=== PATIENT | male | born 1985 | race Caucasian/White ===

== ENCOUNTER 2016-06-12 09:10 | Emergency (ER) | payer OTHER, SELFPAY ==
--- NOTE | 2016-06-17 09:52 | ER ---
ADMIT: 06/12/2016 RM/LOC: ER [facility] MR#: [id number] 2620 [facility] [address] [place], [place] [address] GURU MILLARD [address] [facility] 24 [place] [id number] Emergency Room Report SEX: M AGE: 30 : 1985 DATE: 06/12/2016 ADDENDUM: CHIEF COMPLAINT: Foot numbness and tingling and weakness. HISTORY OF PRESENT ILLNESS: This is a 30-year-old, who has a history of diabetes. His right foot has been weak and numb and tingly since he woke up this morning. COURSE IN THE EMERGENCY ROOM: I did a CT of the head and L-spine, both were negative for any acute disease. CBC was normal. Chemistries normal except for glucose elevated at 281. Urine is normal except for 1000 glucose and 2+ ketones. He did receive a liter of fluids here and discharging him home, told to continue his diabetes medications, encouraged him to check his blood sugars more often, encouraged him that he needs to follow up with [facility] for further evaluation of this the foot weakness and paresthesia. FINAL CLINICAL IMPRESSION: 1. Diabetes with hyperglycemia. 2. Right foot weakness and paresthesia. DISPOSITION: Stable at discharge. Will follow up with [facility] within the next week. JOHN Melo / Donovan Ngo MD / modl JOB #: [id number] CC: Donovan Ngo MD, Attending Physician
[2016-06-30] MEDS ORDERED: BACTRIM DS DPS1 TAB PO (10:55)
[2016-06-30] MEDS ORDERED: TYLENOL DPS325 MG PO (10:56)
[2016-06-30] MEDS ORDERED: LEVEMIR100 UNIT/1 SQ (10:56)
== END 2016-06-12 14:18 | disposition home or self-care (01) ==
LOC: ER 09:10
DX: E11.65 Type 2 diabetes mellitus with hyperglycemia (principal); R20.2 Paresthesia of skin; I10 Essential (primary) hypertension; F17.210 Nicotine dependence, cigarettes, uncomplicated; Z79.4 Long term (current) use of insulin; Z79.84 Long term (current) use of oral hypoglycemic drugs

== ENCOUNTER 2016-06-17 19:26 | Emergency (ER) | payer OTHER, SELFPAY ==
--- NOTE | 2016-06-18 13:23 | ER ---
ADMIT: 06/17/2016 RM/LOC: ER [facility] MR#: [id number] 2620 [facility] [address] [place], [place] [address] GURU MILLARD [address] [facility] 24 [place] [address] Emergency Room Report SEX: M AGE: 30 : 1985 DATE: 06/17/2016 HISTORY OF PRESENT ILLNESS: The patient is a 30-year-old male, goes to [facility], sees Dr. Etelvina Stanton. He is a diabetic and comes in with testicular pain right-sided for about 24 hours. He said he has had a boil in his right testicle. He has had similar symptoms before when he had pimples in the buttocks area. He is quite obese and he stated that he has lost 80 pounds, so he has long ways to go, but apparently he is doing well. His diabetes is not well controlled. He says his diabetes are usually 300 and up. He takes Toujeo insulin. PHYSICAL EXAMINATION: VITAL SIGNS: Blood pressure 159/83, heart rate is 94, respirations 20, temp is 100.4, O2 sats 96%. GENERAL: He is mildly anxious. ABDOMEN AND GENITOURINARY: No abdominal tenderness; however, he does have right testicular tenderness and a nonmobile mass in the right testicle. I do not see any dimple or any signs of abscess. NECK: Supple. RESPIRATIONS: No distress. CARDIOVASCULAR: Regular in rate and rhythm. EXTREMITIES: Well perfused. LABORATORY DATA: White count is elevated 13.6. Ultrasound of the right testicle rules out a torsion, but is positive for right epididymitis. CLINICAL IMPRESSION: 1. Right epididymitis. 2. Hyperglycemia. Almost a noncompliant diabetic. His hemoglobin A1c has been elevated as well. I consulted with Dr. Mcintosh for his treatment. We are going to go ahead and do Rocephin 1 g and then sent him IM and we will send him home with doxycycline. Follow up with Etelvina Stanton [facility] or Dr. Smith, Urology. He is also given [place], and while in the emergency room, we will go ahead and give him a shot of Rocephin. JOHN Pena / Hamitlon Mcintosh MD / faiza JOB #: [id number] CC: Hamilton Mcintosh MD, Attending Physician Etelvina Stanton, Family Physician
[2016-06-30] MEDS ORDERED: BACTRIM DS DPS1 TAB PO (10:55)
[2016-06-30] MEDS ORDERED: TYLENOL DPS325 MG PO (10:56)
[2016-06-30] MEDS ORDERED: LEVEMIR100 UNIT/1 SQ (10:56)
== END 2016-06-17 22:25 | disposition home or self-care (01) ==
LOC: ER 19:26
DX: N45.1 Epididymitis (principal); E11.65 Type 2 diabetes mellitus with hyperglycemia; Z79.4 Long term (current) use of insulin

== ENCOUNTER 2016-06-19 12:45 | Inpatient (IN) | payer OTHER ==
[~2016-06-19] VITALS: Ht 167.6 cm; Wt 121.0 kg
--- NOTE | 2016-06-21 09:02 | CO ---
ADMIT: 06/19/2016 RM/LOC: 522 [facility] MR#: [id number] 2620 [facility] [address] [place], [place] [address] GURU MILLARD [address] [facility] 24 [place] [address] Consultation SEX: M AGE: 30 : 1985 DATE OF CONSULTATION: 06/19/2016 ATTENDING PHYSICIAN: Radha Negron CONSULTING PHYSICIAN: Navid Smith MD PROBLEM: Scrotal swelling. HISTORY OF PRESENT ILLNESS: This 30-year-old gentleman approximately two days ago developed some pain in the right testicular area. He was seen by his family physician and placed on doxycycline antibiotic therapy. His pain worsened as well as the swelling and he presented to the emergency room today for further evaluation. He had scrotal ultrasound two days ago, which was repeated today reveals epididymitis without evidence of air within the soft- tissue. He is voiding without urgency, frequency, hesitancy, strain to void or feeling of incomplete emptying. There has been no dysuria or gross hematuria. He has not had any trauma to the genitourinary region. He denies previous epididymitis, orchitis, or prostatitis. He is a diabetic, which is poorly controlled, at this time on oral medication for this. PAST MEDICAL HISTORY: OPERATIONS: None. MEDICATIONS: 1. Metformin 1000 mg twice a day. 2. Lisinopril/hydrochlorothiazide 20/25 mg. 3. Toujeo 30 units every day. ALLERGIES: NONE. REVIEW OF SYSTEMS: He denies any cardiac or pulmonary disease. Other than his diabetes mellitus, he has been in good health. FAMILY HISTORY: Negative for urologic problems. SOCIAL HISTORY: He does not smoke. PHYSICAL EXAMINATION: GENERAL: This is a healthy appearing 30-year-old, in no acute distress. HEENT: Unremarkable. NECK: Supple without adenopathy. ABDOMEN: Soft, obese, nontender, without guarding or rigidity. No masses were noted. GENITOURINARY: The penis was uncircumcised. The scrotum is slightly erythematous with tenderness along the right epididymis in the region of the globus major. The testicle itself appears to be normal. The left testicle was nontender to palpation as well as the epididymis and cord structures. RECTAL: Deferred. ADMIT: 06/19/2016 RM/LOC: 522 [facility] MR#: [id number] [address] [place] [id number] [place], [place] [address] COLÓNDEE OHMONTOYA, GURU [address] [address] Consultation SEX: M AGE: 30 : 1985 EXTREMITIES: Full range of motion without deformity. NEUROLOGICAL: He is grossly intact. ASSESSMENT: Right epididymitis. PLAN: I would continue present antibiotic therapy using the Rocephin and Cipro. I would also ask that they obtain a jockstrap for scrotal elevation. Local heat will be applied to the scrotal region three times a day for a period of 30 minutes each time. Thank you for allowing us to assist in the care of your patient. We will follow along with you. Navid Smith MD/ faiza JOB #: [id number] CC: Radha Negron, Attending Physician Radha Negron, Family Physician Radha Negron MD
[2016-06-22] MEDS ORDERED: NORCO 5-325 TA1 EACH PO (15:44)
[2016-06-22] MEDS ORDERED: ZESTORETIC 20/21 TAB PO (15:44)
[2016-06-22] MEDS ORDERED: GLUCOPHAGE-DPS500 MG PO (15:44)
[2016-06-22] MEDS ORDERED: TOUJEO SOL300 UNIT/1 SQ (15:44)
[2016-06-22] MEDS ORDERED: MOTRIN-DPS800 MG PO (15:44)
[2016-06-22] MEDS ORDERED: OMNICEF DPS300 MG PO (15:45)
[2016-06-22] MEDS ORDERED: CIPRO DPS500 MG PO (15:45)
--- NOTE | 2016-06-28 06:57 | ER ---
ADMIT: 06/19/2016 RM/LOC: 522 [facility] MR#: [id number] 2620 [facility] [address] [place], [place] [address] GURU MILLARD [address] [facility] 24 [place] [address] Emergency Room Report SEX: M AGE: 30 : 1985 DATE: 06/19/2016 ADDENDUM: A 30-year-old male, who was seen a couple days ago for epididymitis, is having worsening symptoms in the past 2 days despite being on oral antibiotics. He admits that he has fairly poorly controlled diabetes. He went over to follow up at [facility] today and they were uncomfortable taking care of him as he was having increasing pain, swelling, and having fevers. He was sent to our facility for further workup. I did a sepsis routine on the patient in the Emergency Department. His white count is elevated to 14.1, his CRP is 19.6, lactic acid is 1.2. His electrolytes were unremarkable. His glucose is 318. Hemoglobin A1c was elevated to 12. Urinalysis showed 2+ protein, increased specific gravity of 1.043, and 4 urobilinogen. Ultrasound of his testicle and groin were done which reveals persistent epididymitis with some swelling, but he has normal flow to the testicle. There is no abscess or gas seen. There is increasing edema in the patient's groin. The patient looks to be not doing well on his outpatient antibiotic therapy and has quite poorly controlled diabetes which is complicating his infection. Plan at this time is to bring the patient in for IV antibiotics and I spoke to Dr. Negron as he is a city-call patient. She graciously agrees to admit the patient and he did receive his first dose of antibiotics in the Emergency Department. DIAGNOSES: 1. Epididymitis. 2. Groin cellulitis. 3. Poorly controlled insulin-dependent diabetes. Leonel Sotomayor MD/ modl JOB #: [id number] CC: Radha Negron MD, Attending Physician Radha Negron MD, Family Physician
[2016-06-30] MEDS ORDERED: BACTRIM DS DPS1 TAB PO (10:55)
[2016-06-30] MEDS ORDERED: TYLENOL DPS325 MG PO (10:56)
[2016-06-30] MEDS ORDERED: LEVEMIR100 UNIT/1 SQ (10:56)
--- NOTE | 2016-07-03 08:26 | HP ---
ADMIT: 06/19/2016 RM/LOC: 522 [facility] MR#: [id number] 2620 [facility] [address] [place], [place] [id number] GURU MILLARD [address] [facility] [address] [place] [address] History and Physical SEX: M AGE: 30 : 1985 DATE OF SERVICE: CHIEF COMPLAINT: Testicular pain and fever. HISTORY OF PRESENT ILLNESS: This is a 30-year-old gentleman who presented to the emergency room today complaining of fever and increasing testicular pain. He was actually in the emergency room on June 17 with a complaint of testicular pain and was diagnosed with epididymitis. At that visit, he was given IM Rocephin and a prescription for doxycycline 100 mg b.i.d. He went to [facility] today because he was having more pain and they referred him to come back to the hospital. This gentleman has type 2 diabetes, uncontrolled, with an A1c of 12.6. He is obese and has been unable to get around very well the last 48 hours because of the pain. Because of his high fever, failed outpatient treatment, and his diabetes, he is admitted for IV antibiotic therapy. I do note that on June 17, he had ultrasound revealing "finding suggesting acute right-sided epididymitis." No discrete abscess identified. There was also normal blood flow to both testes and no mass identified. Ultrasound was repeated today in the emergency room and was read as similar findings with no obvious abscess. PAST MEDICAL HISTORY: Significant for hypertension diagnosed several years ago. Also, type 2 diabetes diagnosed in about 2014. He has nonobstructive coronary artery disease, diagnosed by heart catheterization in 2008 in [place], [place]. He also has past records stating steatohepatitis. He is obese. SOCIAL HISTORY: He admits to smoking and says he will drink up to 8-12 beers on a weekend. He is single but his significant other is with him. 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 FAMILY HISTORY: Significant for diabetes in his mother and coronary artery disease with heart attacks in his maternal grandmother. Otherwise, history is noncontributory. MEDICATIONS: 1. Toujeo 30 units daily. 2. Doxycycline 100 mg twice daily starting on 06/17/2016. 3. He is supposed to take metformin and lisinopril but said he has not taken those for 2-3 months. 4. He is on lisinopril/hydrochlorothiazide 20/25 mg daily and metformin 1000 mg b.i.d., but again has not taken those for at least 2 months. REVIEW OF SYSTEMS: GENERAL: Positive for fevers and chills starting yesterday. ENT: Denies complaints. CARDIOPULMONARY: Denies chest pain. No shortness of breath. ADMIT: 06/19/2016 RM/LOC: 522 [facility] MR#: [id number] [address] [place] [id number] [address] History and Physical SEX: M AGE: 30 : 1985 GASTROINTESTINAL: Denies any nausea or vomiting. Denies diarrhea or constipation. GENITOURINARY: He said he is able to urinate. He has pain in the scrotum and testicle. MUSCULOSKELETAL: He did complain that he had some pain a week ago and is actually in the emergency room on June 12 and underwent ultrasound of the right leg which showed no DVT. NEURO/PSYCH: Benign. ENDOCRINE: Positive for diabetes. PHYSICAL EXAMINATION: VITAL SIGNS: Temperature was up to 104 here on the floor. ENT: Benign. He looks hydrated. He has no scleral icterus. He is alert and oriented. NECK: Thick. No obvious adenopathy in the neck or supraclavicular areas. HEART: Regular. LUNGS: Sound fairly clear. ABDOMEN: His belly is obese. It is difficult to feel for hepatosplenomegaly. He has no upper quadrant pain. He really does not have suprapubic pain but he does have tenderness in the groin on the right side and also with some redness and tenderness extending up into the pannus of his belly on the right side. GENITOURINARY: The scrotum is swollen and right testicle is difficult to palpate secondary to pain. There are no open wounds on the skin. EXTREMITIES: Lower extremities are obese, not really any pitting edema. LABORATORY AND X-RAY DATA: His ultrasound again showed no abscess and was consistent with the epididymitis. Sodium 134, potassium 3.9. His BUN is 11 with a creatinine of 0.8. Glucose was 318 on admission. Phosphorus was 2.4, but otherwise rest of the electrolytes are all normal and liver enzymes are normal. CRP is elevated at 19.6. Coagulation factors are normal. White count is 14.1, hemoglobin 14.7, platelet count 204. Monocytes are a little bit elevated at 1.5 and neutrophils are elevated at 10.9. Sedimentation rate is 52. A1c is 12.6. His urinalysis showed a high specific gravity, greater than a 1000 glucose, 2+ protein, 4+ urine ketones. Bilirubin was positive but less than 1 mg/dL. Nitrite negative. Leukocytes negative, and on the microscopic exam, he had 3 wbc's and less than 1 rbc per high-power field. ASSESSMENT: 1. Acute epididymitis failing outpatient care. 2. Diabetes type 2, uncontrolled. 3. Obesity. ADMIT: 06/19/2016 RM/LOC: 522 [facility] MR#: [id number] 5400 [facility] [address] [place] [id number] GURU MILLARD [facility] [address] [address] History and Physical SEX: M AGE: 30 : 1985 4. Hypertension. 5. Prior documented history of nonobstructive coronary artery disease. PLAN: Admit to the hospital. Start him on IV antibiotics. We will use IV Cipro and Rocephin. I will continue to keep him hydrated, monitor his blood sugars, and use sliding scale insulin. We will continue his Toujeo and restart his lisinopril with hydrochlorothiazide as well as his metformin. I will consult Urology and Dr. Smith is aware. I am also going to add GC, chlamydia, HIV testing to his labs. VTE prophylaxis will be with Lovenox. We will also follow his white count and CRP. Radha Negron MD/ faiza JOB #: [id number] CC: Radha Negron, Attending Physician Radha Negron, Family Physician
--- NOTE | 2016-07-16 08:17 | DS ---
ADMIT: 06/19/2016 RM/LOC: 512 [facility] MR#: [id number] 2620 [facility] [address] [place], [place] [address] GURU MILLARD [address] [facility] [address] [place] [address] General Discharge Summary SEX: M AGE: 30 : 1985 ADMISSION DATE: 06/19/2016 DISCHARGE DATE: 06/22/2016 FINAL DIAGNOSES: 1. Acute epididymitis with failed outpatient treatment and cellulitis. 2. Diabetes type 2, uncontrolled. 3. Morbid obesity. 4. Chronic hypertension. HOSPITAL COURSE: This gentleman was admitted with pain in the scrotal area and had epididymitis. He was taking doxycycline as an outpatient but started spiking fevers. He was admitted, started on IV antibiotics and Urology was consulted. Initially, white count was 14.1 and went up to a maximum of 15.5. The rest of his CBC was normal. Initial chemistries showed elevated glucose but otherwise normal. Procalcitonin and lactic acid were normal. He did have an elevated CRP at 19.6 on admission. His hemoglobin A1c is markedly elevated at 12.6. After starting IV antibiotic and IV fluid and using insulin with sliding scale, he had improvement in his temperatures and started to feel better. On 06/20, he met with wholesaler. On 06/21, temperature curve was improved but he still had a temp up to 101, and so we continued the antibiotics. Urology planned outpatient followup. By 06/22, he was afebrile, able to get up and move around without difficulty. He was dismissed home on Cipro and Omnicef orally. He will continue Cipro for 2 more weeks and the Omnicef for 1 more week. He also needs to continue metformin 1000 mg b.i.d., lisinopril/hydrochlorothiazide 20/25 mg daily, and Toujeo insulin 40 units daily. He already had some Lortab available at home and he can continue those if necessary for pain. Other significant laboratory included HIV test which was negative. Chlamydia and gonorrhea infections were not detected and blood cultures were negative for the full 5 days. He will follow up with Urology within a week but return if he has increasing pain or recurrent fever. Radha Negron MD/ faiza JOB #: [id number] CC: Radha Negron MD, Attending Physician Radha Negron MD, Family Physician
== END 2016-06-22 09:52 | disposition home or self-care (01) | DRG 728 ==
LOC: ER 12:45 → 5MS 14:43
PROVIDERS: ADMIT Family Medicine
DX: N45.1 Epididymitis (principal); E11.65 Type 2 diabetes mellitus with hyperglycemia; I10 Essential (primary) hypertension; L03.314 Cellulitis of groin; Z68.41 Body mass index [BMI] 40.0-44.9, adult; E66.9 Obesity, unspecified; F17.200 Nicotine dependence, unspecified, uncomplicated; Z79.4 Long term (current) use of insulin

== ENCOUNTER 2016-06-24 00:02 | Inpatient (IN) | payer OTHER ==
[~2016-06-24] VITALS: Ht 165.1 cm; Wt 120.2 kg
--- NOTE | ~2016-06-24 | WND ---
ADMIT: 06/24/2016 RM/LOC: 409 [facility] MR#: [id number] [address] [facility] [address] [place], [place] [address] ROMEO MILLARD Y [address] [facility] 24 [place] [address] W[facility] Care Clinic SEX: M AGE: 30 : 1985 DATE OF VISIT: 06/26/2016 CHIEF COMPLAINT: Right inguinal abscess. HISTORY OF PRESENT ILLNESS: Romeo is a 30-year-old male, who was recently admitted for a hospital stay for testicular pain and fever that turned out to be acute epididymitis with failed outpatient care; type 2 diabetes mellitus, uncontrolled; and obesity. His hospitalization was from June 19 to June 22. He reports that he went home for a day or 2 after receiving IV antibiotics in the hospital and stated that he had felt pretty good for a day; however, then he started to have blood and pus drained from that right groin area. He was readmitted where he underwent incision and drainage on 06/25/2016, and is currently on IV antibiotics to include vancomycin and Zosyn. ALLERGIES: No known drug allergies. CURRENT MEDICATIONS: 1. Glucophage 500 mg p.o. twice daily. 2. HydroDIURIL 25 mg p.o. daily. 3. Levaquin 750 mg daily. 4. Zestril 20 mg daily. 5. Levemir 30 units daily. 6. NovoLog. He is on a moderate dose sliding scale before meals and at bedtime. 7. Tylenol as needed for pain. 8. Dilaudid 1 mg IV every 2 hours p.r.n. for pain. 9. He is also getting vancomycin 1.75 g every 8 hours. 10.Zosyn 3.375 mg every 8 hours. PAST MEDICAL HISTORY: Type 2 diabetes mellitus, poorly controlled; obesity; epididymitis; hypertension. SOCIAL HISTORY: He denies any illicit drug use. He drinks socially and smokes daily. He is . FAMILY HISTORY: Significant for diabetes, coronary artery disease. REVIEW OF SYSTEMS: He does report pain to the groin area. He states this was 9/10 prior to the incision and drainage, but a 2 to 3/10 today. He denies any fever or chills currently. PHYSICAL EXAMINATION: VITAL SIGNS: Focused examination reveals vital signs of temperature 97.6 degrees Fahrenheit, respirations 16, pulse 59, blood pressure 115/49, pulse ox is 98% on room air. Romeo has a small open area in the right groin that is packed with 1 inch ADMIT: 06/24/2016 RM/LOC: 409 [facility] MR#: [id number] [address] [place] [phone] ROMEO MILLARD Y [address] [place] [address] Wound Care Clinic SEX: M AGE: 30 : 1985 gauze ribbon that appears saturated with serosanguineous exudate. He does have some periwound induration and erythema. ASSESSMENT: 1. Acute epididymitis. 2. Abscess in right inguinal area. 3. Obesity. 4. Poorly controlled type 2 diabetes mellitus. PLAN: I agree with the current treatment to pack the open area in the right groin with ribbon gauze and apply an ABD, which is secured with a jockstrap. They can change this. Malini Vargas APRN/ faiza JOB #: [id number] CC: Radha Negron, Attending Physician Radha Negron, Family Physician
[~2016-06-24 00:02] MED LIST: CIPRO DPS500 MG PO; GLUCOPHAGE-DPS500 MG PO; MOTRIN-DPS800 MG PO; NORCO 5-325 TA1 EACH PO; OMNICEF DPS300 MG PO; TOUJEO SOL300 UNIT/1 SQ; ZESTORETIC 20/21 TAB PO
--- NOTE | 2016-06-24 05:48 | ER ---
ADMIT: 06/24/2016 RM/LOC: ER [facility] MR#: [id number] 2620 [facility] [address] [place], [place] [address] GURU MILLARD Y [address] [facility] 24 [place] [address] Emergency Room Report SEX: M AGE: 30 : 1985 DATE: 06/24/2016 CHIEF COMPLAINT: Right scrotal mass. HISTORY OF PRESENT ILLNESS: The patient is a 30-year-old male with right scrotal cellulitis and epididymitis, recent hospitalization June 19 through . Two ultrasounds failed to confirm abscess. Presents tonight with increased pain, swelling, and now drainage; is compliant with his antibiotics of Cipro and cefdinir, taking hydrocodone two every 4 to 6 hours. PAST MEDICAL HISTORY: ILLNESSES: Type 2 diabetes with oral and sliding scale insulin, hypertension, epididymitis, morbid obesity. OPERATIONS: None ALLERGIES: NONE. MEDICATIONS: Please see nurse's MAR. SOCIAL HISTORY: Smokes one half pack per day. . No illicit drugs. Occasional alcoholic beverage. REVIEW OF SYSTEMS: A 12-point review of systems negative for all other systems, illnesses, or operations except as outlined above. PHYSICAL EXAMINATION: VITAL SIGNS: Temp 99.1, pulse 100, respirations 18, BP 138/76, SaO2 of 96% on room air. GENERAL: Morbidly obese, toxic-appearing male without jaundice or icterus. HEENT: Normocephalic. No evidence of epistaxis, rhinorrhea, or otorrhea. NECK: Supple without lymphadenopathy or thyromegaly. CHEST: Clear. Breath sounds equal. HEART: Tachycardic, regular without murmur, gallop, trace ankle edema noted. ABDOMEN: Morbidly obese, with panniculitis. Acutely tender right hemiscrotum. Cannot rule out hernia due to obesity, foul-smelling drainage noted right hemiscrotum. EXTREMITIES: No evidence of cellulitis or Homans sign. MEDICAL DECISION MAKING: The patient's screen is positive for sepsis. CT abdomen and pelvis and hemiscrotum shows likely abscess in right hemiscrotum, otherwise unremarkable. WBC 16.2, platelets 290, sodium 129, glucose 318, magnesium 1.7, CRP 18.1, lactic 1.4, troponin 0.015, procalcitonin 0.58. UA; 1+ ketone, greater than 1000 glucose. The patient was given IV fluid bolus 30 mg/kg after transient hypotension with antibiotics of vancomycin and Zosyn. Also, given Toradol and Dilaudid for pain with improvement. Discussed findings with Dr. Haines and Dr. Luke, who agreed and gave orders to nursing staff. ADMIT: 06/24/2016 RM/LOC: [facility] MR#: [id number] [address] [place] [phone] [facility] [place] [address] Emergency Room Report SEX: M AGE: 30 : 1985 DIAGNOSES: 1. Right hemiscrotal abscess. 2. Poorly-controlled diabetes. 3. Morbid obesity. RECOMMENDATION: Admit inpatient telemetry for Dr. Negron. ADMISSION/DISCHARGE CONDITION: Stable. Omar Colorado MD/ levyl JOB #: [id number] CC: Omar Colorado MD, Attending Physician Etelvina Stanton, REIMBURSEMENT SPEC-INDUSTRIAL ENGINEERING MANAGER, Family Physician Radha Negron MD
[2016-06-30] MEDS ORDERED: BACTRIM DS DPS1 TAB PO (10:55)
[2016-06-30] MEDS ORDERED: LEVEMIR100 UNIT/1 SQ (10:56)
[2016-06-30] MEDS ORDERED: TYLENOL DPS325 MG PO (10:56)
--- NOTE | 2016-07-03 08:26 | HP ---
ADMIT: 06/24/2016 RM/LOC: 409 [facility] MR#: [id number] 2620 [facility] [address] [place], [place] [address] GURU MILLARD [address] [facility] [address] [place] [address] History and Physical SEX: M AGE: 30 : 1985 DATE OF SERVICE: CHIEF COMPLAINT: Right scrotal mass bleeding and pain. HISTORY OF PRESENT ILLNESS: The patient is a 30-year-old male with right scrotal cellulitis and epididymitis, most recently hospitalized on june 19 through June 22. During that time, he had a workup, and was treated with antibiotics. He presented early this morning with increased pain, swelling, and now has drainage. The patient states he has been compliant with the Cipro and cefdinir. He is taking hydrocodone as well for pain control. The patient states that he has felt fairly well after he was discharged on Thursday and thought he was doing better, however, on Thursday evening, he went to put a hot pack on the area as he was told to do and suddenly noticed there is a lot of blood draining out as well as other pus. He says it is malodorous as well. PAST MEDICAL HISTORY: Type 2 diabetes with both oral and insulin, hypertension, epididymitis, and then morbid obesity. OPERATIONS: None. ALLERGIES: NONE. SOCIAL HISTORY: He smokes a day, drinks alcohol on occasion. He is . Denies any illicit drugs. FAMILY HISTORY: Significant for diabetes, coronary artery disease. Otherwise, noncontributory. MEDICATIONS: Include: 1. Toujeo 40 units. 2. Metformin 1000 mg b.i.d. 3. Lisinopril HCTZ 20/25 daily. 4. Hydrocodone 5/325 one to two tabs every 4-6 hours as needed. 5. Motrin every 8 hours as needed. 6. Omnicef 300 mg b.i.d. for 7 days. 7. Cipro 500 mg b.i.d. for 15 days. REVIEW OF SYSTEMS: GENERAL: The patient denies any fevers and chills. HEENT: Denies any complains. CARDIOPULMONARY: No chest pain. No shortness of breath. GI: Denies nausea or vomiting. He has had some diarrhea since being on antibiotics. : Pain in the scrotum and testicle as well as bleeding from the right scrotum. ENDOCRINE: Positive for diabetes. MUSCULOSKELETAL: No erythema or joint swelling. PHYSICAL EXAMINATION: VITAL SIGNS: Most recent vital signs show temp of 97.1, pulse is 75, respirations 16, blood pressure 124/69, and O2 saturation ADMIT: 06/24/2016 RM/LOC: 409 [facility] MR#: [id number] [address] [place] [phone] [address] [place] [address] [place] [address] History and Physical SEX: M AGE: 30 : 1985 of 97%. GENERAL: No acute distress. Alert and oriented x3. He is morbidly obese. HEENT: Normocephalic and atraumatic. Moist mucous membranes. Extraocular muscles are intact. Pupils are equal, round, and reactive. LUNGS: Clear to auscultation bilaterally. Normal respiratory effort. No wheezing or rhonchi appreciated. HEART: Regular rate and rhythm. No murmur. ABDOMEN: Soft and nontender. Positive bowel sounds. Morbidly obese. : Right scrotum has area of drainage with packing with moderate amount of blood. There is also some malodor to the area as well as swollen. EMERGENCY ROOM COURSE: Workup in the ER today showed UA that had greater than 1000 glucose and positive ketones but there are no signs of UTI. Blood cultures were drawn. CBC, white blood cell count was 16.2, hemoglobin was stable at 15, platelets were 290. PT/INR 10.9, 1.05. CMP; sodium was low at 129, however, glucose was elevated at 318, potassium was normal at 3.9, creatinine was normal at 0.9, Mag was slightly low at 1.7. Cardiac enzymes were negative. CRP was 18.10. Lactic acid was normal at 1.4. Procal was at intermediate range of 0.58. Airway culture was taken. ASSESSMENT AND PLAN: This is a 30-year-old male with acute epididymitis in right scrotal cellulitis possible abscess, type 2 diabetes, obesity, hypertension, and also prior document history of nonobstructive coronary artery disease. We will admit the patient to the hospital, start him on IV antibiotics and will continue to control his pain. We will re-consult Urology. Annie Haines MD Resident / Radha Negron MD / faiza JOB #: [id number] CC: Radha Negron, Attending Physician Radha Negron, Family Physician
--- NOTE | 2016-07-09 19:48 | DS ---
ADMIT: 06/24/2016 RM/LOC: 409 [facility] MR#: [id number] 2620 [facility] [address] [place], [place] [id number] GURU MILLARD [address] [facility] [address] [place] [address] General Discharge Summary SEX: M AGE: 30 : 1985 ADMISSION DATE: 06/24/2016 DISCHARGE DATE: 06/29/2016 PROCEDURES: Include an I and D of scrotum as well as right inguinal abscess. FINAL DIAGNOSES: 1. Epididymitis. 2. Right inguinal abscess. 3. Poorly controlled type 2 diabetes. 4. Coronary artery disease. 5. Obesity. HISTORY OF PRESENT ILLNESS: The patient presented to the ER for right testicular pain that he was actually just discharged from the hospital 2 days prior for. At that time, he was diagnosed with epididymitis, started on antibiotics. He came into the ER 2 days later because he was having increasing pain again and then also noted that he had some bloody pus discharge from his right groin and scrotum. HOSPITAL COURSE: 1. Epididymitis and scrotal abscess. The patient was started on vancomycin and Zosyn for the infection. Urology was consulted and they just wanted to an I and D of the abscess and scrotal abscess. He was also started on Levaquin throughout his stay. The patient started having some improvement with decreased pain. Wound consults were seeing the patient to help manage control of the abscess and now open I and D. The patient was discharged home on Cipro and Bactrim b.i.d. He had follow up with Urology within a couple of days of discharge. 2. Uncontrolled type 2 diabetes. The patient's blood sugars remained very high throughout his hospital stay. It was also noted that patient was not taking any of his medications as he was supposed to prior to being admitted. The patient was discharged out on metformin 500 mg b.i.d. as well as Levemir 30 units daily subcutaneous as well as moderate sliding scale before meals and at bedtime. DISPOSITION: Home, improved. DISCHARGE MEDICATIONS: Include: 1. Bactrim DS b.i.d. 2. Cipro 500 mg b.i.d. ADMIT: 06/24/2016 RM/LOC: 409 [facility] MR#: [id number] 2620 [facility] [address] [place], [place] [address] [facility] [address] [facility] [address] [place] [address] General Discharge Summary SEX: M AGE: 30 : 1985 3. Glucophage 500 mg b.i.d. 4. HydroDIURIL 25 mg daily. 5. Zestril 20 mg daily. 6. Levemir 30 units subcutaneous daily. 7. NovoLog moderate sliding scale before meals and at bedtime. The patient was also discharged on hydrocodone 5/325 every 4 hours as needed for pain. The patient is also to take Tylenol as needed. The patient is to follow up again with Urology within 1-2 days of discharge for a wound check and was to follow up with Dr. Negron in 1 week. CODE STATUS: Full. Annie Haines MD Resident / Radha Negron MD / levyl JOB #: [id number] CC: Radha Negron MD, Attending Physician Radha Negron MD, Family Physician
--- NOTE | 2016-07-13 08:46 | OR ---
ADMIT: 06/24/2016 RM/LOC: 409 [facility] MR#: [id number] 26[address] [facility] [address] [place], [place] [address] GURU MILLARD [address] [facility] [address] [place] [address] Operative/Delivery Room Report SEX: M AGE: 30 : 1985 SURGERY DATE: 06/25/2016 SURGEON: Navid Smith MD PROBLEM: Inguinal abscess. POSTOPERATIVE DIAGNOSIS: Inguinal abscess. OPERATION: Examination under anesthesia. incision and drainage of right inguinal abscess. ANESTHETIC: General. INDICATION FOR PROCEDURES: This 30-year-old gentleman initially presented with epididymitis, which did progress to a development of an abscess in the right inguinal area. He is admitted now for incision and drainage. DESCRIPTION OF OPERATION: After a suitable general endotracheal anesthetic was obtained, the patient was placed in the dorsal lithotomy position with his genitalia and surrounding skin prepped and draped in the usual sterile fashion. Examination of the scrotum reveals some edematous soft-tissue without fluctuance in the scrotal region, especially on the right. There is an open draining sinus in the right inguinal area which is erythematous. This area was incised sharply at which time the inguinal area was probed with a hemostat. No evidence of gross purulence was noted. This area was cultured both anaerobic and aerobically. The wound was then copiously irrigated with bacitracin antibiotic solution. 2 inch iodoform gauze was then used to pack the wound area. Silver with Hydrofiber dressing along with scrotal support were then placed. The patient having tolerated the procedure was taken to the recovery room in satisfactory condition. Navid Smith MD/ faiza JOB #: [id number] CC: Radha Negron, Attending Physician Radha Negron, Family Physician Radha Negron MD
== END 2016-06-29 13:20 | disposition home or self-care (01) | DRG 580 ==
LOC: ER 00:02 → 4PCU 03:18
PROVIDERS: ADMIT Family Medicine
PROC: 0Y950ZZ Drainage of Right Inguinal Region, Open Approach (ICD-10-PCS; principal; 2016-06-25)
DX: L02.214 Cutaneous abscess of groin (principal); Z68.42 Body mass index [BMI] 45.0-49.9, adult; E11.65 Type 2 diabetes mellitus with hyperglycemia; I10 Essential (primary) hypertension; N49.2 Inflammatory disorders of scrotum; I25.10 Atherosclerotic heart disease of native coronary artery without angina pectoris; F17.210 Nicotine dependence, cigarettes, uncomplicated; E66.01 Morbid (severe) obesity due to excess calories; Z79.4 Long term (current) use of insulin